=== PATIENT | female | born 1935 | race Caucasian/White ===

== ENCOUNTER 2018-10-13 12:21 | Inpatient (IN) | payer MEDICARE, MEDICAID ==
[~2018-10-13] VITALS: Ht 165.1 cm; Wt 68.3 kg
--- NOTE | 2018-10-13 12:38 | ED Respiratory ---
General Stated Complaint: NURSE WANTS HER CHECKED OUT Source: patient, EMS Exam Limitations: clinical condition (Parkinson's disease and advanced Alzheimer's) History of Present Illness Date Seen by Provider: Oct 13, 2018 Time Seen by Provider: 12:25 Initial Comments The patient presents to the ER by EMS from [facility] where she was sitting in her wheelchair at the nurse's station and the nurse noticed just prior to arrival a episode of convulsion holding her breath for a few seconds. She summonsed EMS stating that the patient was experiencing apnea accepted the patient never truly stopped breathing nor loss consciousness. Patient does not have a history of epilepsy. The patient does have advanced Alzheimer's, Parkinson's dementia and contractures and is fairly confined to the wheelchair. The patient is nonverbal and does not give any meaningful history. EMS started a liter of saline on route said she was 94% on room air with no apparent distress when they arrived. She is not diabetic. Twelve-lead was unrevealing. Allergies and Home Medications Allergies Coded Allergies: Sulfa (Sulfonamide Antibiotics) (Verified Allergy, Unknown, 10/13/18) Patient Home Medication List Home Medication List Reviewed: Yes Review of Systems Review of Systems Constitutional: see HPI (review of systems per staff and EMS as the patient is nonverbal and does not indicate yes or no); No fever Respiratory: No cough, No phlegm, No wheezing Cardiovascular: No edema, No Hx of Intervention, No syncope Gastrointestinal: No constipation, No diarrhea, No vomiting Genitourinary: No hematuria; incontinence Past Yflvmay-Iasqig-Gdpbaq Hx Patient Social History Alcohol Use: Denies Use Recreational Drug Use: No Smoking Status: Never a Smoker Physical Exam Vital Signs - First Documented 10/13/18 12:38 Temp 97.9 Pulse 108 Resp 31 B/P (MAP) 139/97 (111) Pulse Ox 93 O2 Delivery Room Air Capillary Refill : Height: '" Weight: lbs. oz. kg; BMI Method: General Appearance: WD/WN, no apparent distress, other (nonverbal but alert and responds to her name) Eyes: Bilateral Eye Normal Inspection, Bilateral Eye PERRL (4 mm bilateral reactive), Bilateral Eye EOMI HEENT: PERRL/EOMI, normal ENT inspection, TMs normal, other (oral mucosa mildly dry) Neck: non-tender, full range of motion, normal inspection Respiratory: chest non-tender, lungs clear, normal breath sounds, no respiratory distress, no accessory muscle use, other (respiratory rate of 26-30 and oxygen sats 94% on room air) Cardiovascular: normal peripheral pulses, regular rate, rhythm, no edema Gastrointestinal: normal bowel sounds, non tender, soft, no organomegaly Extremities: other (upper and lower extremity contractures) Neurologic/Psychiatric: alert, other (nonverbal) Skin: normal color, warm/dry Focused Exam Lactate Level 10/13/18 13:05: Lactic Acid Level 1.27 Lactic Acid Level Laboratory Tests Test 10/13/18 13:05 Lactic Acid Level 1.27 MMOL/L (0.50-2.00) Progress/Results/Core Measures Suspected Sepsis SIRS Temperature: Pulse: Respiratory Rate: Laboratory Tests 10/13/18 12:25: White Blood Count 9.6 Blood Pressure / Mean: 10/13/18 13:05: Lactic Acid Level 1.27 Laboratory Tests 10/13/18 12:25: Creatinine 0.72, Platelet Count 249, Total Bilirubin 0.4 Results/Orders Lab Results Laboratory Tests Test 10/13/18 12:25 10/13/18 13:05 Range/Units White Blood Count 9.6 4.3-11.0 10^3/uL Red Blood Count 4.86 4.35-5.85 10^6/uL Hemoglobin 13.9 11.5-16.0 G/DL Hematocrit 44 35-52 % Mean Corpuscular Volume 91 80-99 FL Mean Corpuscular Hemoglobin 29 25-34 PG Mean Corpuscular Hemoglobin Concent 31 L 32-36 G/DL Red Cell Distribution Width 14.9 H 10.0-14.5 % Platelet Count 249 130-400 10^3/uL Mean Platelet Volume 9.9 7.4-10.4 FL Neutrophils (%) (Auto) 76 H 42-75 % Lymphocytes (%) (Auto) 15 12-44 % Monocytes (%) (Auto) 7 0-12 % Eosinophils (%) (Auto) 1 0-10 % Basophils (%) (Auto) 1 0-10 % Neutrophils # (Auto) 7.3 1.8-7.8 X 10^3 Lymphocytes # (Auto) 1.5 1.0-4.0 X 10^3 Monocytes # (Auto) 0.7 0.0-1.0 X 10^3 Eosinophils # (Auto) 0.1 0.0-0.3 10^3/uL Basophils # (Auto) 0.1 0.0-0.1 10^3/uL Sodium Level 146 H 135-145 MMOL/L Potassium Level 4.2 3.6-5.0 MMOL/L Chloride Level 106 98-107 MMOL/L Carbon Dioxide Level 28 21-32 MMOL/L Anion Gap 12 5-14 MMOL/L Blood Urea Nitrogen 21 H 7-18 MG/DL Creatinine 0.72 0.60-1.30 MG/DL Estimat Glomerular Filtration Rate > 60 BUN/Creatinine Ratio 29 Glucose Level 114 H 70-105 MG/DL Calcium Level 9.4 8.5-10.1 MG/DL Corrected Calcium 9.6 8.5-10.1 MG/DL Total Bilirubin 0.4 0.1-1.0 MG/DL Aspartate Amino Transf (AST/SGOT) 19 5-34 U/L Alanine Aminotransferase (ALT/SGPT) 5 0-55 U/L Alkaline Phosphatase 96 40-136 U/L C-Reactive Protein High Sensitivity 0.32 0.00-0.50 MG/DL Pro-B-Type Natriuretic Peptide 470.6 H <75.0 PG/ML Total Protein 7.1 6.4-8.2 GM/DL Albumin 3.7 3.2-4.5 GM/DL Lactic Acid Level 1.27 0.50-2.00 MMOL/L My Orders Orders - ISACC CASTAÑEDA Ekg Tracing (10/13/18 12:31) Continuous Ekg Monitoring (10/13/18 12:31) Cbc With Automated Diff (10/13/18 12:31) Comprehensive Metabolic Panel (10/13/18 12:31) Chest 1 View Ap/Pa Only (10/13/18 12:31) Probnp Fs (10/13/18 12:31) Hs C Reactive Protein (10/13/18 12:31) Albuterol/Ipra Inhalation Soln (Duoneb I (10/13/18 12:45) Svn Small Volume Nebulizer (10/13/18 12:45) Blood Culture (10/13/18 12:58) Lactic Acid Analyzer (10/13/18 12:58) Ceftriaxone For Iv Use (Rocephin For I (10/13/18 13:00) Azithromycin Injection (Zithromax Inject (10/13/18 13:00) Medications Given in ED Current Medications Medications Dose Ordered Sig/Rosy Route Start Time Stop Time Status Last Admin Dose Admin Albuterol/ Ipratropium 3 ml ONCE ONCE INH 10/13/18 12:45 10/13/18 12:46 DC 10/13/18 12:53 3 ML Azithromycin 500 mg/Sodium Chloride 250 ml @ 250 mls/hr ONCE ONCE IV 10/13/18 13:00 10/13/18 13:59 DC 10/13/18 14:20 250 MLS/HR Ceftriaxone Sodium 1000 mg/ Sterile Water 10 ml @ 200 mls/hr ONCE ONCE IV 10/13/18 13:00 10/13/18 13:02 DC 10/13/18 14:20 200 MLS/HR Vital Signs/I&O 10/13/18 12:38 Temp 97.9 Pulse 108 Resp 31 B/P (MAP) 139/97 (111) Pulse Ox 93 O2 Delivery Room Air Capillary Refill : Progress Note : Time: 12:37 Progress Note Uncertain what caused her vague symptoms as described by EMS. She is tachypneic and tachycardic so pneumonia could be in the differential. DO NOT RESUSCITATE. We'll get a chest x-ray some labs, BNP and also get an EKG. She does not appear to be any distress and has a nontender, nonacute abdomen with otherwise unremarkable vital signs, afebrile. She is tachycardic at 105 so we'll go ahead and let her finish her liter of saline. Mucous membranes are dry so she could be dehydrated since she is not able to feed herself or ask for something to drink. If she has no elevated white count and we would get a straight catheter for urinalysis however I do not suspect a UTI would explain increased respiratory rate. Her oxygen sats slip down to 90% on room air and she is tachycardic so we put her on 2 L by nasal cannula. We'll give her a DuoNeb as well. After reviewing the chest x-ray showing some possible right and left basilar infiltrates versus atelectasis went ahead and gave her some Rocephin and azithromycin. Blood cultures were drawn. ECG Initial ECG Impression Date: Oct 13, 2018 Initial ECG Impression Time: 12:33 Initial ECG Rate: 105 Initial ECG Rhythm: S.Tach Initial ECG Intervals: QT (474) Initial ECG Impression: Nonspecific Changes Initial ECG Comparisson: No Previous ECG Available Comment Sinus tachycardia without clinically significant ST elevation or depression. Diagnostic Imaging Diagonstic Imaging: Xray Plain Films/CT/US/NM/MRI: chest (1v) Comments Poor inspiratory effort with possible basilar infiltrate on the right side. NAME: JERRI MAYBERRY [employer] REC#: [id number] PT STATUS: REG ER : 1935 PHYSICIAN: ISACC CASTAÑEDA MD ADMIT DATE: 10/13/18/ER FS Draft Date of Exam:10/13/18 CHEST 1 VIEW AP/PA ONLY INDICATION: Dyspnea. COMPARISON: None available. FINDINGS: Low lung volumes. Bibasilar ill-defined pulmonary opacities. No pleural effusion or pneumothorax. Enlargement of the cardiac silhouette is present. IMPRESSION: 1. Low lung volumes with bibasilar pulmonary opacities that may represent atelectasis. However, aspiration or pneumonia could give this appearance. Advise followup PA and lateral chest radiographs in 4 weeks after appropriate medical management to ensure resolution. Dictated on workstation # [id number] Dict: 10/13/18 1248 Trans: 10/13/18 1251 [facility] [id number] Interpreted by: CHLOE IFNNEY MD Electronically signed by: Reviewed: Reviewed by Me Departure Communication (Admissions) Time/Spoke to Admitting Phy: 13:05 Discussed the case lab imaging with Dr. Reynoso and she agrees to admit the patient to the floor. Impression Primary Impression: Pneumonia Qualified Codes: J18.1 - Lobar pneumonia, unspecified organism Additional Impression: Hypoxia Disposition: ADMITTED INPATIENT Condition: Stable Admissions Decision to Admit Reason: Admit from ER (General) Decision to Admit/Date: Oct 13, 2018 Time/Decision to Admit Time: 13:00 ISACC CASTAÑEDA Oct 13, 2018 12:38
[2018-10-13] MEDS ORDERED: RT-ALBUTEROL/IPRATROPIUM 3 ML (DUONEB) VIAL INH ONE (12:45)
--- NOTE | 2018-10-13 12:51 | Diagnostic Imaging Report ---
INDICATION: Dyspnea. COMPARISON: None available. FINDINGS: Low lung volumes. Bibasilar ill-defined pulmonary opacities. No pleural effusion or pneumothorax. Enlargement of the cardiac silhouette is present. IMPRESSION: 1. Low lung volumes with bibasilar pulmonary opacities that may represent atelectasis. However, aspiration or pneumonia could give this appearance. Advise followup PA and lateral chest radiographs in 4 weeks after appropriate medical management to ensure resolution. Dictated by: Dictated on workstation # [id number]
[2018-10-13 12:54] LABS: WHITE BLOOD COUNT 9.6 10^3/uL (4.3-11.0)
[2018-10-13 12:55] LABS: BASOPHILS # (AUTO) 0.1 10^3/uL (0.0-0.1); BASOPHILS % (AUTO) 1 % (0-10); EOSINOPHILS # (AUTO) 0.1 10^3/uL (0.0-0.3); EOSINOPHILS % (AUTO) 1 % (0-10); HEMATOCRIT 44 % (35-52); HEMOGLOBIN 13.9 G/DL (11.5-16.0); LYMPHOCYTES # (AUTO) 1.5 X 10^3 (1.0-4.0); LYMPHOCYTES % (AUTO) 15 % (12-44); MEAN CORPUSCULAR HEMOGLOBIN 29 PG (25-34); MEAN CORPUSCULAR HGB CONC 31 G/DL (32-36); MEAN CORPUSCULAR VOLUME 91 FL (80-99); MEAN PLATELET VOLUME 9.9 FL (7.4-10.4); MONOCYTES # (AUTO) 0.7 X 10^3 (0.0-1.0); MONOCYTES % (AUTO) 7 % (0-12); NEUTROPHILS # (AUTO) 7.3 X 10^3 (1.8-7.8); NEUTROPHILS % (AUTO) 76 % (42-75); PLATELET COUNT 249 10^3/uL (130-400); RED CELL DISTRIBUTION WIDTH 14.9 % (10.0-14.5)
[2018-10-13] MEDS ORDERED: AZITHROMYCIN INJECTION 500 MG in NS (IVPB) 250 ML IV ONE (13:00)
[2018-10-13] MEDS ORDERED: cefTRIAXone FOR IV USE 1,000 MG in WATER (STERILE) FOR INJECTION 10 ML IV ONE (13:00)
--- NOTE | 2018-10-13 13:25 | NUR ---
Updated Emili, patient's nurse at [facility], of plan to admit patient to [facility] room 402.
[2018-10-13 13:32] LABS: ALANINE AMINOTRANSFERASE 5 U/L (0-55); ALBUMIN 3.7 GM/DL (3.2-4.5); ALKALINE PHOSPHATASE 96 U/L (40-136); BILIRUBIN,TOTAL 0.4 MG/DL (0.1-1.0); BUN/CREATININE RATIO 29; CALCIUM 9.4 MG/DL (8.5-10.1); CARBON DIOXIDE 28 MMOL/L (21-32); CHLORIDE 106 MMOL/L (98-107); CREATININE SERUM 0.72 MG/DL (0.60-1.30); GFR ESTIMATED > 60; GLUCOSE 114 MG/DL (70-105); POTASSIUM 4.2 MMOL/L (3.6-5.0); SODIUM 146 MMOL/L (135-145); TOTAL PROTEIN 7.1 GM/DL (6.4-8.2)
--- NOTE | 2018-10-13 13:33 | NUR ---
Unable to contact Luke Jesse, patient's first contact. Called Kiana Prasanth, patients daughter and second contact number, to update on patient having pneumonia and being admitted to the hospital in [place] if family is agreeable. Kiana states she will come to the ED prior to patient being admitted.
[2018-10-13] MEDS ORDERED: WATER (STERILE) FOR INJECTION 10 ML ONE (14:03)
[2018-10-13] MEDS ORDERED: AZITHROMYCIN 500 MG (ZITHROMAX) VIAL ONE (14:03)
[2018-10-13] MEDS ORDERED: NS (IVPB) 250 ML ONE (14:03)
[2018-10-13] MEDS ORDERED: cefTRIAXone 1,000 MG IV (ROCEPHIN) VIAL ONE (14:03)
--- NOTE | 2018-10-13 14:53 | NUR ---
Family here with patient, updated on patient condition and admission to room 402. Transfer consent signed by daughter.
--- NOTE | 2018-10-13 16:10 | NUR ---
JERRI MAYBERRY admitted to room 402-1, with an admitting diagnosis of pneumonia, on 10/13/18 from ED via stretcher, accompanied by EMS. JERRI MAYBERRY introduced to surroundings, call light, bed controls, phone, TV, temperature control, lights, meal times, smoking policy, visitor policy, side rail policy, bathrooms and showers. Patient Rights given to patient in the handbook. JERRI MAYBERRY verbalizes understanding that [facility] is not responsible for the loss or damage to any personal effects or valuables that are kept in the patients possession during their hospitalization. The following Patient Care Plans were discussed with the patient and family: Discharge Planning, medications, pain managment, and dehydration . JERRI MAYBERRY verbalizes understanding of Interdisciplinary Patient Education. Patient and/or family were informed about the Rapid Response Team and its purpose.
[2018-10-13] MEDS ORDERED: KETOROLAC 15 MG/ML VIAL IV PRN (16:15)
[2018-10-13] MEDS ORDERED: ACETAMINOPHEN 500 MG TAB (TYLENOL) PO PRN (16:15)
[2018-10-13] MEDS ORDERED: ONDANSETRON 4 MG/2 ML (SDV) Z0FRAN IV PRN (16:15)
[2018-10-13 16:29] VITALS: BP 139/97
[2018-10-13] MEDS ORDERED: CATHETER FLUSH 10 ML SYR IV PRN (16:30)
--- OUTSIDE RECORDS SUMMARY | 2018-10-13 16:32 | XMS REPORT | Continuity of Care Document ---
Author Organization Unknown Address Unknown Allergies There is no data. Medications There is no data. Problems There is no data. Procedures There is no data. Results Test Result Range CMP - 07/09/18 09:22 GLUCOSE 101 mg/dL 65-99 UREA NITROGEN (BUN) 16 mg/dL 7-25 CREATININE 0.71 mg/dL 0.60-0.88 eGFR NON-AFR. [place] 78 mL/min/1.73m2 > OR=60 eGFR 91 mL/min/1.73m2 > OR=60 BUN/CREATININE RATIO NOT APPLICABLE (calc) 6-22 SODIUM 142 mmol/L 135-146 POTASSIUM 4.4 mmol/L 3.5-5.3 CHLORIDE 106 mmol/L 98-110 CARBON DIOXIDE 28 mmol/L 20-32 CALCIUM 9.7 mg/dL 8.6-10.4 PROTEIN, TOTAL 6.8 g/dL 6.1-8.1 ALBUMIN 4.0 g/dL 3.6-5.1 GLOBULIN 2.8 g/dL (calc) 1.9-3.7 ALBUMIN/GLOBULIN RATIO 1.4 (calc) 1.0-2.5 BILIRUBIN, TOTAL 0.6 mg/dL 0.2-1.2 ALKALINE PHOSPHATASE 102 U/L 33-130 AST 20 U/L 10-35 ALT 13 U/L 6-29 CBC w/MANUAL DIFF - 07/09/18 09:22 WHITE BLOOD CELL COUNT 7.7 Thousand/uL 3.8-10.8 RED BLOOD CELL COUNT 4.82 Million/uL 3.80-5.10 HEMOGLOBIN 14.1 g/dL 11.7-15.5 HEMATOCRIT 42.6 % 35.0-45.0 MCV 88.4 fL 80.0-100.0 MCH 29.3 pg 27.0-33.0 MCHC 33.1 g/dL 32.0-36.0 RDW 13.8 % 11.0-15.0 PLATELET COUNT 250 Thousand/uL 140-400 MPV 10.4 fL 7.5-12.5 ABSOLUTE NEUTROPHILS 5467 cells/uL 0485-7761 ABSOLUTE MONOCYTES 385 cells/uL 200-950 ABSOLUTE EOSINOPHILS 77 cells/uL 15-500 ABSOLUTE BASOPHILS 0 cells/uL 0-200 NEUTROPHILS 71.0 % NRG LYMPHOCYTES 23.0 % NRG MONOCYTES 5.0 % NRG EOSINOPHILS 1.0 % NRG BASOPHILS 0 % NRG ABSOLUTE LYMPHOCYTES 1771 cells/uL 850-3900 PLATELET ESTIMATION ADEQUATE ADEQUATE COMMENT(S) NRG Encounters ACCT No. Visit Date/Time Discharge Status Pt. Type Provider Facility Loc./Unit Complaint [id number] 10/11/2018 15:30:00 ACT Outpatient SHAUN YEPEZ [facility] [id number] 07/09/2018 17:40:00 Document Registration
--- OUTSIDE RECORDS SUMMARY | 2018-10-13 16:33 | XMS REPORT | Continuity of Care Document ---
Author Organization Unknown Address Unknown Allergies There is no data. Medications There is no data. Problems There is no data. Procedures There is no data. Results Test Result Range CMP - 07/09/18 09:22 GLUCOSE 101 mg/dL 65-99 UREA NITROGEN (BUN) 16 mg/dL 7-25 CREATININE 0.71 mg/dL 0.60-0.88 eGFR NON-AFR. [place] 78 mL/min/1.73m2 > OR=60 eGFR 91 mL/min/1.73m2 [...] 10.4 fL 7.5-12.5 ABSOLUTE NEUTROPHILS 5467 cells/uL 6560-5195 ABSOLUTE MONOCYTES 385 cells/uL 200-950 ABSOLUTE EOSINOPHILS 77 cells/uL 15-500 ABSOLUTE BASOPHILS 0 cells/uL 0-200 NEUTROPHILS 71.0 % NRG LYMPHOCYTES 23.0 % NRG MONOCYTES 5.0 % NRG EOSINOPHILS 1.0 % NRG BASOPHILS 0 % NRG ABSOLUTE LYMPHOCYTES 1771 cells/uL 850-3900 PLATELET ESTIMATION ADEQUATE ADEQUATE COMMENT(S) NRG Encounters ACCT No. Visit Date/Time Discharge Status Pt. Type Provider Facility Loc./Unit Complaint [id number] 10/11/2018 15:30:00 ACT Outpatient SHAUN YEPEZ [facility] [id number] 07/09/2018 17:40:00 Document Registration
[2018-10-13] MEDS: NS IV 1000 ML 1,000 ML IV SCH (16:59)
[2018-10-13] MEDS ORDERED: RT-ALBUTEROL/IPRATROPIUM 3 ML (DUONEB) VIAL INH PRN (17:00)
[2018-10-13 18:10] VITALS: BP 126/91
[2018-10-13] MEDS: RT-ALBUTEROL/IPRATROPIUM 3 ML (DUONEB) VIAL INH SCH (18:52)
[2018-10-13 20:05] VITALS: BP 149/96
[2018-10-13] MEDS ORDERED: ATORVASTATIN 40 MG (LIPITOR) TABLET PO SCH (21:00)
[2018-10-13] MEDS: SINEMET 25/100 (CARBIDOPA/LEVODOPA) TAB PO SCH (21:05)
[2018-10-13 23:27] VITALS: BP 153/98
[2018-10-14] MEDS: NS IV 1000 ML 1,000 ML IV SCH ×2 (01:45→09:26)
[2018-10-14 04:28] VITALS: BP 114/68
[2018-10-14 06:15] LABS: BASOPHILS % (AUTO) 0 % (0-10); EOSINOPHILS # (AUTO) 0.2 10^3/uL (0.0-0.3); EOSINOPHILS % (AUTO) 3 % (0-10); HEMATOCRIT 37 % (35-52); HEMOGLOBIN 11.4 G/DL (11.5-16.0); LYMPHOCYTES # (AUTO) 1.7 X 10^3 (1.0-4.0); LYMPHOCYTES % (AUTO) 20 % (12-44); MEAN CORPUSCULAR HEMOGLOBIN 28 PG (25-34); MEAN CORPUSCULAR HGB CONC 31 G/DL (32-36); MEAN CORPUSCULAR VOLUME 91 FL (80-99); MEAN PLATELET VOLUME 10.1 FL (7.4-10.4); MONOCYTES # (AUTO) 0.5 X 10^3 (0.0-1.0); MONOCYTES % (AUTO) 6 % (0-12); NEUTROPHILS # (AUTO) 5.8 X 10^3 (1.8-7.8); NEUTROPHILS % (AUTO) 71 % (42-75); PLATELET COUNT 216 10^3/uL (130-400); RED CELL DISTRIBUTION WIDTH 15.5 % (10.0-14.5); WHITE BLOOD COUNT 8.1 10^3/uL (4.3-11.0)
[2018-10-14] MEDS: RT-ALBUTEROL/IPRATROPIUM 3 ML (DUONEB) VIAL INH SCH ×2 (06:23→10:48)
[2018-10-14 06:38] LABS: ALANINE AMINOTRANSFERASE 11 U/L (0-55); ALBUMIN 3.1 GM/DL (3.2-4.5); ALKALINE PHOSPHATASE 73 U/L (40-136); BILIRUBIN,TOTAL 0.4 MG/DL (0.1-1.0); BUN/CREATININE RATIO 27; CALCIUM 8.3 MG/DL (8.5-10.1); CARBON DIOXIDE 23 MMOL/L (21-32); CHLORIDE 112 MMOL/L (98-107); GFR ESTIMATED > 60; GLUCOSE 92 MG/DL (70-105); POTASSIUM 4.1 MMOL/L (3.6-5.0); SODIUM 143 MMOL/L (135-145); TOTAL PROTEIN 5.4 GM/DL (6.4-8.2)
[2018-10-14 08:00] VITALS: BP 123/79
[2018-10-14] MEDS: SINEMET 25/100 (CARBIDOPA/LEVODOPA) TAB PO SCH ×2 (08:20→13:29)
[2018-10-14] MEDS ORDERED: ASPIRIN 81 MG CHEW (CHILDREN'S ASA) PO SCH (09:00)
[2018-10-14] MEDS ORDERED: AZITHROMYCIN 250 MG TAB (ZITHROMAX) PO SCH (09:00)
--- NOTE | 2018-10-14 09:51 | Diagnostic Imaging Report ---
Indication: Pneumonia. Time of exam: 9:39 AM Correlation is made with prior study from 10/13/2018. The heart is enlarged but stable. Right hemidiaphragm is elevated. Areas of subsegmental atelectasis in both bases persist. Mid and upper lung brandon are clear. No effusion or pneumothorax is seen. Impression: Stable chest since one day earlier. Dictated by: Dictated on workstation # [id number]
[2018-10-14] MEDS ORDERED: CALC-6 PO (11:51)
[2018-10-14] MEDS ORDERED: ATOR40TA70 PO (11:51)
[2018-10-14] MEDS ORDERED: BROM2.5T13 PO (11:51)
[2018-10-14] MEDS ORDERED: ASPI-983 PO (11:51)
[2018-10-14] MEDS ORDERED: CARB1TAB19 PO (11:51)
[2018-10-14] MEDS ORDERED: DOCU-143 PO (11:51)
[2018-10-14] MEDS ORDERED: POLY17PO6 PO (11:51)
--- NOTE | 2018-10-14 11:53 | NUR ---
UPDATED MED REC WITH TRANSFER/DISCHARGE REPORT FROM [facility].
[2018-10-14 12:00] VITALS: BP 154/87
[2018-10-14] MEDS ORDERED: CEFD300C3 PO (12:37)
--- NOTE | 2018-10-14 12:39 | Discharge Instructions ---
Discharge [facility] Discharge Medications New, Converted or Re-Newed RX: Transmitted to Pharmacy New Medications: Cefdinir (Cefdinir) 300 Mg Capsule 300 MG PO BID for 7 Days, #14 CAP 0 Refills Continued Medications: Aspirin (Aspirin EC) 81 Mg Tablet.dr 81 MG PO DAILY, TAB Atorvastatin Calcium (Atorvastatin Calcium) 40 Mg Tablet 40 MG PO Q48H, TAB Bromocriptine Mesylate (Bromocriptine Mesylate) 2.5 Mg Tablet 2.5 MG PO BID, TAB Calcium Carbonate/Vitamin D3 (Calcium 600 + Vit D 200 Tablet) 1 Each Tablet 1 TAB PO DAILY, TAB Carbidopa/Levodopa (Carbidopa-Levodopa 25-100 Tab) 1 Each Tablet 1 TAB PO TID, TAB Docusate Sodium (Colace) 100 Mg Capsule 100 MG PO BID, CAP Polyethylene Glycol 3350 (Miralax) 17 Gm Powd.pack 17 GM PO DAILY, EACH Patient Instructions Goal/Follow Up Appt: [facility] For: Hypoxia, shortness of breath, inability to take medications Activity & Diet Activity as Tolerated: Yes IDANIA YOUNG MD Oct 14, 2018 12:39
--- NOTE | 2018-10-14 12:45 | Short Stay Summary ---
History of Present Illness History of Present Illness Reason for visit/HPI 83 yo nonverbal half-way patient sent to hospital due to episode of concern per nursing facility for abnormal movements or hypoxia. Pt found to have suspected pneumonia on work-up in ER. Date of Admission Oct 13, 2018 at 13:32 Date of Discharge October 14, 2018 Time Seen by Provider: 11:30 Attending Physician Idania Wiggins MD Admitting Physician Ace Martin MD Consult Allergies and Home Medications Allergies Coded Allergies: Sulfa (Sulfonamide Antibiotics) (Verified Allergy, Unknown, 10/13/18) Home Medications Aspirin 81 Mg Tablet.dr, 81 MG PO DAILY, (Reported) Atorvastatin Calcium 40 Mg Tablet, 40 MG PO Q48H, (Reported) Bromocriptine Mesylate 2.5 Mg Tablet, 2.5 MG PO BID, (Reported) Calcium Carbonate/Vitamin D3 1 Each Tablet, 1 TAB PO DAILY, (Reported) Carbidopa/Levodopa 1 Each Tablet, 1 TAB PO TID, (Reported) Cefdinir 300 Mg Capsule, 300 MG PO BID Prescribed by: IDANIA WIGGINS on 10/14/18 1237 Docusate Sodium 100 Mg Capsule, 100 MG PO BID, (Reported) Polyethylene Glycol 3350 17 Gm Powd.pack, 17 GM PO DAILY, (Reported) Patient Home Medication List Home Medication List Reviewed: Yes Past Kfxlavu-Mbsjor-Bkexjv Hx Patient Social History Alcohol Use: Denies Use Recreational Drug Use: No Smoking Status: Never a Smoker 2nd Hand Smoke Exposure: No Recent Foreign Travel: No Contact w/other who traveled: No Recent Hopitalizations: No Recent Infectious Disease Expo: No Seasonal Allergies Seasonal Allergies: No Cardiovascular Yes (edema) Neurological Dementia, Parkinson's Disease Musculoskeletal Yes Contracture HEENT History of HEENT Disorders: Yes HEENT Disorders: Glaucoma Review of Systems Constitutional: other (unable to obtain due to patient baseline nonverbal) Physical Exam Vital Signs Vital Signs - First Documented 10/13/18 10/13/18 10/13/18 12:38 14:56 16:29 Temp 97.9 Pulse 108 Resp 31 B/P (MAP) 139/97 (111) Pulse Ox 93 O2 Delivery Room Air O2 Flow Rate 2.00 FiO2 21 Capillary Refill : Less Than 3 Seconds Height, Weight, BMI Height: 5'5.00" Weight: 150lbs. 8.0oz. 68.840856ef; 26.9 BMI Method:Stated General Appearance: No Apparent Distress Respiratory: Lungs Clear, Normal Breath Sounds Cardiovascular: Regular Rate, Rhythm, No Murmur Gastrointestinal: Normal Bowel Sounds, Non Tender, Soft; No Distended Extremity: No Pedal Edema Neurologic/Psychiatric: Alert, Other (does not respond to questions vocally or in any visible fashion) Skin: Normal Color, Warm/Dry Clinical Quality Measures DVT/VTE Risk/Contraindication: Risk Factor Score Per Nursin RFS Level Per Nursing on Admit: 1=Low/No VTE PPX Short Stay Diagnosis Discharge Diagnosis-Short Stay Admission Diagnosis: Possible apnea Pneumonia Parkinson disease Endstage dementia Final Discharge Diagnosis: Possible apnea- no apnea or hypoxia during stay, did not require supplemental oxygen at time of d/c per RT testing Pneumonia- possible based on x-ray, no leukocytosis or fever, given 7 day course of cefdinir on d/c. Parkinson disease Endstage dementia Conclusion Labs Laboratory Tests 10/13/18 13:05: Lactic Acid Level 1.27 10/14/18 05:37: White Blood Count 8.1, Red Blood Count 4.03L, Hemoglobin 11.4L, Hematocrit 37, Mean Corpuscular Volume 91, Mean Corpuscular Hemoglobin 28, Mean Corpuscular Hemoglobin Concent 31L, Red Cell Distribution Width 15.5H, Platelet Count 216, Mean Platelet Volume 10.1, Neutrophils (%) (Auto) 71, Lymphocytes (%) (Auto) 20, Monocytes (%) (Auto) 6, Eosinophils (%) (Auto) 3, Basophils (%) (Auto) 0, Neutrophils # (Auto) 5.8, Lymphocytes # (Auto) 1.7, Monocytes # (Auto) 0.5, Eosinophils # (Auto) 0.2, Basophils # (Auto) 0.0, Sodium Level 143, Potassium Level 4.1, Chloride Level 112H, Carbon Dioxide Level 23, Anion Gap 8, Blood Urea Nitrogen 16, Creatinine 0.60, Estimat Glomerular Filtration Rate > 60, BUN/Creatinine Ratio 27, Glucose Level 92, Calcium Level 8.3L, Corrected Calcium 9.0, Total Bilirubin 0.4, Aspartate Amino Transf (AST/SGOT) 20, Alanine Aminotransferase (ALT/SGPT) 11, Alkaline Phosphatase 73, Total Protein 5.4L, Albumin 3.1L Conclusion/Plan See final discharge diagnosis. Copy Copies To 1: SELF,ACE WIGGINS,IDANIA Tate MD Oct 14, 2018 12:45
[2018-10-14] MEDS ORDERED: cefTRIAXone 1,000 MG/SWFI 10 ML IV PUSH IV SCH ×2 (13:00)
--- NOTE | 2018-10-14 13:41 | NUR ---
Report given to RAYMUNDO [facility] at [facility].
--- NOTE | 2018-10-14 13:42 | NUR ---
CM/SS. Patient discharged to return to established residency with Kay Gilliam via their transport scheduled for 1430. Patient is returning jail care, does not qualify to access skilled benefits. Unit RN is communicating with son about arrangements, he is here but not in the room at time of narrative writer's visit. Faxed orders to [place], prepared packet to accompany patient. NH understands to bring wheelchair for patient, there are clothes in the room and she is not on O2.
== END 2018-10-14 14:15 | DRG 195 ==
LOC: EDUNIT# 12:21 → ER FS 12:24 → 4TH 13:32
PROVIDERS: ADMIT Internal Medicine; ATTEND Family Medicine
DX: J18.9 Pneumonia, unspecified organism (principal); R09.02 Hypoxemia; G30.9 Alzheimer's disease, unspecified; G31.83 Neurocognitive disorder with Lewy bodies; F02.80 Dementia in other diseases classified elsewhere, unspecified severity, without behavioral disturbance, psychotic disturbance, mood disturbance, and anxiety; R06.81 Apnea, not elsewhere classified; Z66 Do not resuscitate; Z79.82 Long term (current) use of aspirin
CPT/HCPCS: 36415; 71045; 80053; 83605; 83880; 85025; 86141; 87040; 93005; 94640; 94760; 94761; 96365; 96375

== ENCOUNTER 2018-10-23 14:42 | Emergency (ER) | payer MEDICARE, MEDICAID ==
[~2018-10-23] VITALS: Ht 157.5 cm; Wt 66.7 kg
[~2018-10-23 14:42] MED LIST: ASPI-983 PO; ATOR40TA70 PO; BROM2.5T13 PO; CALC-6 PO; CARB1TAB19 PO; CEFD300C3 PO; DOCU-143 PO; POLY17PO6 PO
--- OUTSIDE RECORDS SUMMARY | 2018-10-23 14:46 | XMS REPORT | Continuity of Care Document ---
Author Organization Unknown Address Unknown Allergies There is no data. Medications There is no data. Problems There is no data. Procedures There is no data. Results Test Result Range CMP - 07/09/18 09:22 GLUCOSE 101 mg/dL 65-99 UREA NITROGEN (BUN) 16 mg/dL 7-25 CREATININE 0.71 mg/dL 0.60-0.88 eGFR NON-AFR. [place] 78 mL/min/1.73m2 > OR=60 eGFR 91 mL/min/1.73m2 [...] 10.4 fL 7.5-12.5 ABSOLUTE NEUTROPHILS 5467 cells/uL 6123-3281 ABSOLUTE MONOCYTES 385 cells/uL 200-950 ABSOLUTE EOSINOPHILS 77 cells/uL 15-500 ABSOLUTE BASOPHILS 0 cells/uL 0-200 NEUTROPHILS 71.0 % NRG LYMPHOCYTES 23.0 % NRG MONOCYTES 5.0 % NRG EOSINOPHILS 1.0 % NRG BASOPHILS 0 % NRG ABSOLUTE LYMPHOCYTES 1771 cells/uL 850-3900 PLATELET ESTIMATION ADEQUATE ADEQUATE COMMENT(S) NRG Encounters ACCT No. Visit Date/Time Discharge Status Pt. Type Provider Facility Loc./Unit Complaint [id number] 10/11/2018 15:30:00 10/11/2018 23:59:59 [facility] Outpatient SHAUN YEPEZ [facility] [id number] 07/09/2018 17:40:00 Document Registration
[2018-10-23] MEDS ORDERED: RT-ALBUTEROL/IPRATROPIUM 3 ML (DUONEB) VIAL INH ONE (15:00)
[2018-10-23 15:27] LABS: HEMATOCRIT 42 % (35-52); HEMOGLOBIN 13.2 G/DL (11.5-16.0); LYMPHOCYTES % (AUTO) 11 % (12-44); MEAN CORPUSCULAR HEMOGLOBIN 28 PG (25-34); MEAN CORPUSCULAR HGB CONC 31 G/DL (32-36); MEAN CORPUSCULAR VOLUME 90 FL (80-99); NEUTROPHILS % (AUTO) 80 % (42-75); PLATELET COUNT 310 10^3/uL (130-400); RED CELL DISTRIBUTION WIDTH 14.9 % (10.0-14.5); WHITE BLOOD COUNT 10.2 10^3/uL (4.3-11.0)
[2018-10-23 15:28] LABS: BASOPHILS % (AUTO) 0 % (0-10); EOSINOPHILS # (AUTO) 0.1 10^3/uL (0.0-0.3); EOSINOPHILS % (AUTO) 1 % (0-10); LYMPHOCYTES # (AUTO) 1.1 X 10^3 (1.0-4.0); MONOCYTES # (AUTO) 0.7 X 10^3 (0.0-1.0); MONOCYTES % (AUTO) 7 % (0-12); NEUTROPHILS # (AUTO) 8.1 X 10^3 (1.8-7.8)
[2018-10-23 15:44] LABS: ALKALINE PHOSPHATASE 102 U/L (40-136); BILIRUBIN,TOTAL 0.4 MG/DL (0.1-1.0); BUN/CREATININE RATIO 26; CALCIUM 9.4 MG/DL (8.5-10.1); CARBON DIOXIDE 26 MMOL/L (21-32); CHLORIDE 103 MMOL/L (98-107); CREATININE SERUM 0.68 MG/DL (0.60-1.30); GFR ESTIMATED > 60; GLUCOSE 136 MG/DL (70-105); POTASSIUM 3.8 MMOL/L (3.6-5.0); SODIUM 142 MMOL/L (135-145)
[2018-10-23 15:45] LABS: ALANINE AMINOTRANSFERASE 10 U/L (0-55); ALBUMIN 3.7 GM/DL (3.2-4.5); TOTAL PROTEIN 7.2 GM/DL (6.4-8.2)
--- NOTE | 2018-10-23 15:52 | Diagnostic Imaging Report ---
PATIENT HISTORY: Cough. TECHNIQUE: Single frontal view of the chest. COMPARISON: 10/14/2018. FINDINGS: Lung volumes are low, with significant elevation of the right hemidiaphragm. There is persistent airspace opacity in the lung bases bilaterally. This appears stable on the right and mildly increased on the left. No pneumothorax or large pleural effusion is seen. The cardiac silhouette is stable in size. IMPRESSION: 1. Low lung volumes with bibasilar airspace opacities, stable on the right and increased on the left. Given the low lung volumes, this is likely atelectasis or scarring although underlying infection is not excluded. Dictated by: Dictated on workstation # [id number]
--- NOTE | 2018-10-23 16:11 | ED Cough/URI ---
General Chief Complaint: Respiratory Problems Stated Complaint: COUGH Source: EMS, long-term records Exam Limitations: other (dementia) History of Present Illness Date Seen by Provider: Oct 23, 2018 Time Seen by Provider: 14:42 Initial Comments 83-year-old female presenting from [facility] long-term due to cough and shortness of breath. She has dementia and is mostly nonverbal. She was having increased respirations and difficulty breathing at the long-term and so they had her brought to the ED for evaluation. She had recently been on antibiotics for pneumonia. She was having a loose and rattling cough today. She was not running a fever. She was not bringing up anything when she coughs. She has not been eating very much in the last few weeks. Her overall health has been declining. Allergies and Home Medications Allergies Coded Allergies: Sulfa (Sulfonamide Antibiotics) (Verified Allergy, Unknown, 10/13/18) Home Medications Albuterol Sulfate 2.5 Mg/3 Ml Vial.neb, 2.5 MG INH TID Prescribed by: GIOVANNI ROSEN on 10/23/18 1646 Aspirin 81 Mg Tablet.dr, 81 MG PO DAILY, (Reported) Atorvastatin Calcium 40 Mg Tablet, 40 MG PO Q48H, (Reported) Bromocriptine Mesylate 2.5 Mg Tablet, 2.5 MG PO BID, (Reported) Calcium Carbonate/Vitamin D3 1 Each Tablet, 1 TAB PO DAILY, (Reported) Carbidopa/Levodopa 1 Each Tablet, 1 TAB PO TID, (Reported) Cefdinir 300 Mg Capsule, 300 MG PO BID Prescribed by: IDANIA YOUNG on 10/14/18 1237 Docusate Sodium 100 Mg Capsule, 100 MG PO BID, (Reported) Lorazepam 2 Mg/1 Ml Oral.conc, 0.5 ML PO Q12H PRN for ANXIETY Prescribed by: GIOVANNI ROSEN on 10/23/18 1732 Polyethylene Glycol 3350 17 Gm Powd.pack, 17 GM PO DAILY, (Reported) Patient Home Medication List Home Medication List Reviewed: Yes Review of Systems Review of Systems Constitutional: No chills, No fever; malaise, weakness (generalized) EENTM: No ear discharge, No epistaxis, No nose congestion Respiratory: cough; No hemoptysis; short of breath Cardiovascular: no symptoms reported Gastrointestinal: No nausea, No vomiting Genitourinary: incontinence (wears adult diapers) Musculoskeletal: no symptoms reported Skin: No change in color, No rash Psychiatric/Neurological: Weakness (generalized) Past Phswses-Ugoytf-Szoyhj Hx Past Med/Social Hx: Reviewed Nursing Past Med/Soc Hx Patient Social History 2nd Hand Smoke Exposure: No Recent Hopitalizations: No Seasonal Allergies Seasonal Allergies: No Past Medical History Cardiac: Yes (edema) Dementia, Parkinson's Disease Musculoskeletal: Yes Contracture HEENT: Yes Glaucoma Physical Exam Vital Signs - First Documented 10/23/18 15:00 Temp 99.2 Pulse 105 Resp 36 B/P (MAP) 121/80 (94) Pulse Ox 100 O2 Delivery Nasal Cannula O2 Flow Rate 2.00 Capillary Refill : Height: 5'5.00" Weight: 150lbs. 8.0oz. 68.582765mu; 26.9 BMI Method:Stated General Appearance: no apparent distress HEENT: other (slightly dry mucous membranes) Neck: other (arthritic changes with loss of her cervical lordosis) Respiratory: decreased breath sounds, other (upper airway sounds with congestion and lower airway clear) Cardiovascular: normal peripheral pulses, regular rate, rhythm Gastrointestinal: normal bowel sounds, soft Extremities: normal range of motion, non-tender Neurologic/Psychiatric: alert Skin: normal color, warm/dry Focused Exam Lactate Level 10/23/18 15:00: Lactic Acid Level 1.88 Lactic Acid Level Laboratory Tests Test 10/23/18 15:00 Lactic Acid Level 1.88 MMOL/L (0.50-2.00) Progress/Results/Core Measures Suspected Sepsis SIRS Temperature: Pulse: Respiratory Rate: Laboratory Tests 10/23/18 15:00: White Blood Count 10.2 Blood Pressure / Mean: 10/23/18 15:00: Lactic Acid Level 1.88 Laboratory Tests 10/23/18 15:00: Creatinine 0.68, Platelet Count 310, Total Bilirubin 0.4 Results/Orders Lab Results Laboratory Tests Test 10/23/18 15:00 Range/Units White Blood Count 10.2 4.3-11.0 10^3/uL Red Blood Count 4.67 4.35-5.85 10^6/uL Hemoglobin 13.2 11.5-16.0 G/DL Hematocrit 42 35-52 % Mean Corpuscular Volume 90 80-99 FL Mean Corpuscular Hemoglobin 28 25-34 PG Mean Corpuscular Hemoglobin Concent 31 L 32-36 G/DL Red Cell Distribution Width 14.9 H 10.0-14.5 % Platelet Count 310 130-400 10^3/uL Mean Platelet Volume 10.0 7.4-10.4 FL Neutrophils (%) (Auto) 80 H 42-75 % Lymphocytes (%) (Auto) 11 L 12-44 % Monocytes (%) (Auto) 7 0-12 % Eosinophils (%) (Auto) 1 0-10 % Basophils (%) (Auto) 0 0-10 % Neutrophils # (Auto) 8.1 H 1.8-7.8 X 10^3 Lymphocytes # (Auto) 1.1 1.0-4.0 X 10^3 Monocytes # (Auto) 0.7 0.0-1.0 X 10^3 Eosinophils # (Auto) 0.1 0.0-0.3 10^3/uL Basophils # (Auto) 0.0 0.0-0.1 10^3/uL Sodium Level 142 135-145 MMOL/L Potassium Level 3.8 3.6-5.0 MMOL/L Chloride Level 103 98-107 MMOL/L Carbon Dioxide Level 26 21-32 MMOL/L Anion Gap 13 5-14 MMOL/L Blood Urea Nitrogen 18 7-18 MG/DL Creatinine 0.68 0.60-1.30 MG/DL Estimat Glomerular Filtration Rate > 60 BUN/Creatinine Ratio 26 Glucose Level 136 H 70-105 MG/DL Lactic Acid Level 1.88 0.50-2.00 MMOL/L Calcium Level 9.4 8.5-10.1 MG/DL Corrected Calcium 9.6 8.5-10.1 MG/DL Total Bilirubin 0.4 0.1-1.0 MG/DL Aspartate Amino Transf (AST/SGOT) 23 5-34 U/L Alanine Aminotransferase (ALT/SGPT) 10 0-55 U/L Alkaline Phosphatase 102 40-136 U/L Total Protein 7.2 6.4-8.2 GM/DL Albumin 3.7 3.2-4.5 GM/DL Micro Results Microbiology 10/23/18 Blood Culture - Preliminary, Resulted No growth 10/23/18 Blood Culture - Preliminary, Resulted No growth My Orders Orders - GIOVANNI ROSEN MD Cbc With Automated Diff (10/23/18 14:55) Comprehensive Metabolic Panel (10/23/18 14:55) Blood Culture (10/23/18 14:55) Chest 1 View Ap/Pa Only (10/23/18 14:55) Albuterol/Ipra Inhalation Soln (Duoneb I (10/23/18 15:00) Ekg Tracing (10/23/18 14:55) O2 (10/23/18 14:55) Ed Iv/Invasive Line Start (10/23/18 14:55) Monitor-Rhythm Ecg Trace Only (10/23/18 14:55) Lactic Acid Analyzer (10/23/18 14:55) Svn Small Volume Nebulizer (10/23/18 14:55) Code/Resuscitation (10/23/18 14:55) Lorazepam Tablet (Ativan Tablet) (10/23/18 17:39) Lorazepam Tablet (Ativan Tablet) (10/23/18 17:35) Medications Given in ED Vital Signs/I&O 10/23/18 10/23/18 15:00 16:49 Temp 99.2 Pulse 105 92 Resp 36 30 B/P (MAP) 121/80 (94) 108/72 (84) Pulse Ox 100 96 O2 Delivery Nasal Cannula Room Air O2 Flow Rate 2.00 Capillary Refill : Progress Note #1: Progress Note Labs and x-ray with her recent pneumonia will recheck blood cultures and lactic acid. Progress Note #2: Progress Note Labs appear stable and after breathing treatment her breathing and oxygen saturation had improved. She was still breathing a little fast but was maintaining her O2 sat. Counseled family that this seems to be more that she was still just trying to clear the residual congestion from her recent pneumonia. Will order breathing treatments and family also requested some Ativan or something for anxiety. I did order a small amount of this. Counseled family that hospice may be a viable option as well for her care at this point. Advised to check with the long-term as well as primary provider about this. ECG Initial ECG Impression Date: Oct 23, 2018 Initial ECG Impression Time: 15:42 Initial ECG Rate: 101 Initial ECG Comparisson: Unchanged Comment Sinus tachycardia with heart rate [address] interval 584 ms. A left atrial enlargement. Left ventricular hypertrophy. No acute ST elevation. Appears similar to prior tracings. Diagnostic Imaging Diagonstic Imaging: Xray Plain Films/CT/US/NM/MRI: chest Comments NAME: JERRI MAYBERRY REC#: [id number] PT STATUS: REG ER : 1935 PHYSICIAN: GIOVANNI ROSEN MD ADMIT DATE: 10/23/18/ER FS Signed Date of Exam:10/23/18 CHEST 1 VIEW AP/PA ONLY PATIENT HISTORY: Cough. TECHNIQUE: Single frontal view of the chest. COMPARISON: 10/14/2018. FINDINGS: Lung volumes are low, with significant elevation of the right hemidiaphragm. There is persistent airspace opacity in the lung bases bilaterally. This appears stable on the right and mildly increased on the left. No pneumothorax or large pleural effusion is seen. The cardiac silhouette is stable in size. IMPRESSION: 1. Low lung volumes with bibasilar airspace opacities, stable on the right and increased on the left. Given the low lung volumes, this is likely atelectasis or scarring although underlying infection is not excluded. Dictated by: Dictated on workstation # [id number] Dict: 10/23/18 1545 Trans: 10/23/18 1614 [id number] Interpreted by: VICKY MTZ MD Electronically signed by: VICKY MTZ MD 10/23/18 1614 Departure Impression Primary Impression: Cough in adult Additional Impressions: Rhonchi Dementia Qualified Codes: F03.90 - Unspecified dementia without behavioral disturbance Anxiety Disposition: 01 HOME, SELF-CARE Condition: Stable Departure-Patient Inst. Decision time for Depature: 16:43 Referrals: RENETTA JOHNSTON MD (PCP/Family) Primary Care Physician Patient Instructions: Cough, Adult (DC), Dementia (DC), Anxiety, Adult (DC) Add. Discharge Instructions: Encourage patient to cough. Resume all orders and medicines on patient. Start Albuterol Nebulizer treatments three times a day to help loosen her cough and congestion to help with her breathing for the next week. Check with her primary provider about possible Hospice care. All discharge instructions reviewed with patient and/or family. Voiced understanding. Scripts Lorazepam (Lorazepam) 2 Mg/1 Ml Oral.conc 0.5 ML PO Q12H PRN for ANXIETY for 7 Days, #7 ML 0 Refills Prov: GIOVANNI ROSEN MD 10/23/18 Albuterol Sulfate (Albuterol Sulfate) 2.5 Mg/3 Ml Vial.neb 2.5 MG INH TID for cough/congestion for 7 Days, #21 VIAL 0 Refills Prov: GIOVANNI ROSEN MD 10/23/18 GIOVANNI ROSEN MD Oct 23, 2018 16:11
[2018-10-23] MEDS ORDERED: ALBU2.5V4 INH (16:46)
[2018-10-23 16:49] VITALS: BP 108/72
[2018-10-23] MEDS ORDERED: LORA2ORA5 PO (17:32)
[2018-10-23] MEDS ORDERED: LORazepam 0.5 MG (ATIVAN) TABLET ONE (17:35)
[2018-10-23] MEDS ORDERED: LORazepam ORAL CONCENTRATE 2 MG/ML 30 ML (ATIVAN) PO STA (17:37)
[2018-10-23] MEDS ORDERED: LORazepam 0.5 MG (ATIVAN) TABLET PO STA (17:39)
== END 2018-10-23 17:45 | disposition home or self-care (01) ==
LOC: EDUNIT# 14:42 → ER FS 14:42
DX: F41.9 Anxiety disorder, unspecified (principal); G20 Parkinson's disease; F02.80 Dementia in other diseases classified elsewhere, unspecified severity, without behavioral disturbance, psychotic disturbance, mood disturbance, and anxiety; R05 Cough; R09.89 Other specified symptoms and signs involving the circulatory and respiratory systems; Z87.01 Personal history of pneumonia (recurrent); Z88.2 Allergy status to sulfonamides; Z79.82 Long term (current) use of aspirin
CPT/HCPCS: 36415; 71045; 80053; 83605; 85025; 87040; 93005; 93041; 94640